=== PATIENT | male | born 1950 | race Caucasian/White ===

== ENCOUNTER 2019-02-09 15:08 | Inpatient (IN) ==
--- NOTE | 2019-02-09 18:59 | Internal Med History&Physical ---
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 Patient was sent as a direct admit and nephrology consulted. Past Med Surg Social Fam HX - Past Medical History Medical history: cancer, liver disease Additional medical history: hep c Psychiatric history: no psych history - Past Surgical History Additional surgical history: right elbow surgery - colonoscopy - Social History Smoking Status: Former smoker Smokeless Tobacco Status: No Alcohol use: none Drug use: none - Additional Family History Additional family history: Mom coronary arterial disease Internal Medicine - H&P: Meds DiphenhydraMINE [Benadryl] 25 mg PO AD PRN 10/12/18 [History] Bismuth Subsalicylate [Pepto-Bismol] 262 mg PO DAILY PRN 11/03/18 [History] Ciprofloxacin [Cipro] 500 mg PO DAILY #30 tablet 12/07/18 [Rx] Bumetanide [Bumex] 1 mg PO DAILY 30 Days #30 tablet 12/20/18 [Rx] hydrOXYzine HCl [Hydroxyzine HCl] 25 mg PO Q6H PRN #30 tab 01/24/19 [Rx] HYDROcodone/Acet 5/325 mg [[place] 5-325 mg] 1 tab PO Q6H PRN 14 Days #56 tablet 02/01/19 [Rx] Ammonium Lactate [Amlactin] 1 appl TP BID #1 bottle 02/09/19 [Rx] Doxepin HCl 50 mg PO HS #30 capsule 02/09/19 [Rx] Triamcinolone Acet 0.1% CRM [Kenalog] 453.6 gm TP BID #1 tub 02/09/19 [Rx] predniSONE [PredniSONE] 10 mg PO DAILY #30 tablet 02/09/19 [Rx] Allergy/AdvReac Type Severity Reaction Status Date / Time Penicillins [PCN] AdvReac See Verified 02/09/19 13:48 Comments All Systems PM: A 10-system review of systems was performed and is negative for pertinent findings except as documented above in the HPI. - Constitutional Vitals: Temp Pulse Resp BP Pulse Ox 97.3 F L 81 16 109/70 97 02/09/19 17:24 02/09/19 17:24 02/09/19 17:24 02/09/19 17:24 02/09/19 17:24 Exam: General appearance: Present: A&O X 3, no acute distress - Head Head exam: Present: normocephalic - Eye Eye exam: Present: normal appearance - ENT ENT exam: Present: mucous membranes moist - Respiratory Respiratory exam: Present: CTAB. Absent: accessory muscle use, rales, rhonchi, wheezes - Cardiovascular Cardiovascular exam: Present: RRR, +S1, +S2. Absent: diastolic murmur, gallop, rubs, systolic murmur - GI/Abdominal GI/Abdominal exam: Present: normal bowel sounds, soft, no peritoneal signs. Absent: distended, tenderness - Extremities Exam Extremities exam: Absent: pedal edema - Neurological Exam Neurological exam: Present: alert, oriented X3, no focal deficits. Absent: altered - Psychiatric Psychiatric exam: -normal mood Skin exam: -normal color - Assessment and Plan (1) Acute renal failure (ARF) Current Visit: Yes Status: Acute Assessment and plan: Patient found to have a creatinine of 6.3 at heme oncologist. Patient was sent over as a direct admit for acute renal failure. Nephrology consulted and appreciate respirations. Qualifiers: Acute renal failure type: unspecified Qualified Code(s): N17.9 - Acute k idney failure, unspecified (2) Liver cancer Current Visit: No Status: Acute Assessment and plan: Patient is a 68-year-old male with past medical history significant for metastatic hepatocellular carcinoma with metastases to the bone in addition to hepatitis C who is currently receiving palliative radiotherapy Managed by hematology oncology as outpatient Qualifiers: Liver malignancy type: hepatocellular carcinoma Qualified Code(s): C22.0 - Liver cell carcinoma (3) Bone metastases Current Visit: No Status: Acute Assessment and plan: As above (4) DVT prophylaxis Current Visit: Yes Status: Acute Assessment and plan: Subcutaneous heparin - Time Spent With Patient Total time spent is greater than 50% in coordination of care (as documented) at patient's floor/unit and/or counseling patient:
[2019-02-09] MEDS ORDERED: Naloxone 0.4 MG/ML INJ IVP PRN (19:04)
[2019-02-09] MEDS: 0.9 % Sodium Chloride 1,000 ML IVC SCH (20:38)
[2019-02-10 05:00] LABS: Hemoglobin 9.9 g/dL (12.9-16.9); Mean Corpuscular HGB Conc 34.1 g/dL (31.6-35.5); Mean Corpuscular Hemoglobin 28.5 pg (28.0-33.3); Mean Corpuscular Volume 83.6 fL (83.0-100.0); Platelet Count 146 K/mcL (140-400); Red Blood Count 3.47 M/mcL (4.19-5.50); Red Cell Distribution Width 16.6 % (11.5-14.5)
[2019-02-10 05:27] LABS: Albumin 2.6 g/dL (3.5-5.7); Albumin/Globulin Ratio 0.7 (1.1-2.2); Bilirubin,Total 0.6 mg/dL (0.3-1.0); Globulin 3.6 g/dL (2.4-3.5); Potassium 4.2 mEq/L (3.5-5.1); Total Protein 6.2 g/dL (6.4-8.9)
[2019-02-10] MEDS ORDERED: *HR* OxyCODONE Immed Rel 5 MG TABLET PO STA (08:50)
[2019-02-10] MEDS: 0.9 % Sodium Chloride 1,000 ML IVC SCH (11:45)
[2019-02-10] MEDS ORDERED: *HR* OxyCODONE Immed Rel 5 MG TABLET PO PRN (16:05)
--- NOTE | 2019-02-10 17:06 | Nephrology Consult Note ---
Date of Encounter: 02/10/19 Time of Encounter: 17:02 Assessment and Plan (1) Acute kidney injury superimposed on chronic kidney disease Current Visit: Yes Status: Acute The patient has multifactorial acute kidney injury superimposed on chronic kidney disease. Reviewing his records his renal function has been slowly worsening since November however acutely worsened over the last 3-4 weeks. The patient has multiple possible reasons for worsening kidney function. This includes chronic NSAID use, dehydration from decreased oral intake along with occasional diarrhea, and low blood pressure. This is in the context of an older patient with metastatic cancer receiving immunotherapy who has a diagnosis of cirrhosis. I do think the reason for the acute rise in his renal dysfunction is secondary to volume depletion from decreased oral intake along with chronic NSAID use and routine draining of his abdomen. I will initiate therapy with can increasing his maintenance IV along with giving supplemental bicarbonate. I will initiate a workup as indicated in the orders along with a renal ultrasound. I will defer further workup to Dr. Veronica who will take over the [facility]' inpatient service tomorrow and can review his response to hydration as well as the results of the limited workup. Further management will be determined based off his response to clinical therapies as well as clinical testing. Thank you for the consult. We will follow with you. (2) Metabolic acidosis Current Visit: Yes Status: Acute We will give supplemental sodium bicarbonate. (3) Liver cancer Current Visit: No Status: Acute Patient with metastatic hepatocellular carcinoma. Per the primary team. Richard enrique. I did speak with oncology regarding the plan for the patient. Qualifiers: Liver malignancy type: hepatocellular carcinoma Qualified Code(s): C22.0 - Liver cell carcinoma (4) Anemia Current Visit: Yes Status: Acute We will defer to primary care team. No signs of active bleeding at this time. Transfuse as needed. Qualifiers: Qualified Code(s): D64.9 - Anemia, unspecified (5) Hyponatremia Current Visit: Yes Status: Acute Mild and multifactorial hyponatremia and that should respond to intravenous sodium bicarbonate. History of Present Illness - Reason for Consult Consult date: 02/10/19 Acute Kidney Injury, Chronic Kidney Disease - Chief Complaint martha on ckd - History of Present Illness Mr. Marino is a 68 yo man with a history of chronic kidney disease and metastatic hepatocellular cancer who presents from his oncologist's office secondary to an acute rise in his creatinine. The history was obtained from the patient, his family at the bedside, as well as review of the electronic chart. The patient has hepatic cancer and receives immunotherapy. Over the last few months the patient has had a decline in his functional status and over the last 3 weeks has had a significant decline in his oral intake secondary to a decreased appetite along with occasional discomfort and nausea when he eats. He reports that he has alternating diarrhea and constipation. He has had 3 weeks of occasional nausea. He has had several episodes of emesis over the last day. He denies rashes, but has had significant itching over the last few months. The patient has been taking ibuprofen for pain control and stopped 2-3 weeks ago secondary to concerns that it might exacerbate his bleeding risk. The patient reports that prior to him discontinuing his NSAID that he was taking ibuprofen several times a day and has been doing this for greater than 4 months. Past Med Surg Social Fam HX - Past Medical History Medical history: cancer, liver disease Additional medical history: hep c Psychiatric history: no psych history - Past Surgical History Additional surgical history: right elbow surgery - colonoscopy - Social History Smoking Status: Former smoker Smokeless Tobacco Status: No Alcohol use: none Drug use: none Medications and Allergies hydrOXYzine HCl [Hydroxyzine HCl] 25 mg PO Q6H PRN #30 tab 01/24/19 [Rx] HYDROcodone/Acet 5/325 mg [[place] 5-325 mg] 1 tab PO Q6H PRN 14 Days #56 tablet 02/01/19 [Rx] Doxepin HCl 50 mg PO HS #30 capsule 02/09/19 [Rx] Triamcinolone Acet 0.1% CRM [Kenalog] 453.6 gm TP BID #1 tub 02/09/19 [Rx] Ammonium Lactate [Lac-Hydrin Five] 1 appl TP BID 02/10/19 [History] Ciprofloxacin HCl [Cipro] 500 mg PO DAILY 02/10/19 [History] Oxycodone HCl 5 mg PO Q4H PRN 02/10/19 [History] predniSONE [PredniSONE] 10 mg PO DAILY 02/10/19 [History] Allergy/AdvReac Type Severity Reaction Status Date / Time Penicillins [PCN] AdvReac See Verified 02/09/19 13:48 Comments Review of Systems All Systems: reviewed and no additional remarkable complaints except as stated (As documented in the history of present illness) Exam - Vital Signs Vital signs: Initial Vital Signs Temp Pulse Resp BP Pulse Ox 97.3 F L 81 16 109/70 97 02/09/19 17:24 02/09/19 17:24 02/09/19 17:24 02/09/19 17:24 02/09/19 17:24 Vital Signs - Last 8 Hours Temp Pulse Resp BP Pulse Ox 02/10/19 15:13 97.4 F L 84 16 104/68 96 02/10/19 11:07 97.9 F 79 17 98/61 97 Intake and Output 02/10/19 02/10/19 02/10/19 07:59 15:59 23:59 Intake Total 60 / 60 1360 / 1360 Output Total 0 / 0 Balance 60 / 60 1360 / 1360 Intake: IV Fluids 1000 / 1000 0.9 % Sodium Chloride 1,000 ML 1000 / 1000 @ 75 mls/hr IVC .[id number] COUNT INCLUDES THE [facility] Rx #:[id number] Oral 60 / 60 360 / 360 Output: Urine 0 / 0 Other: Meal Lunch Percent of Meal Consumed 10% - General Appearance General appearance: well-developed, chronically ill, frail EENT: ATNC Neck: supple Respiratory: clear Cardiology: no edema, regular rate Gastrointestinal: no tenderness, no guarding, distended (Abdomen is distended and somewhat firm.) Integumentary: warm and dry Neurologic: alert and oriented x3 Musculoskeletal: no cyanosis Psychiatric: mood/affect appropriate Results - Lab Results 02/10/19 04:34 02/10/19 04:34 Most recent lab results Calcium 8.0 mg/dL (8.6-10.3) L 02/10/19 04:34 Consult Discharge Plan - Plan Referrals: Deepali Seo MD [Primary Care Provider] -
[2019-02-10 19:22] LABS: Bilirubin,Urine Negative (Negative); Blood,Urine Negative (Negative); Clarity,Urine Clear (Clear); Color,Urine Yellow (Yellow); Glucose,Urine (UA) Normal (Normal); Ketones,Urine Negative (Negative); Leukocyte Esterase,Urine Negative (Negative); Nitrite,Urine Negative (Negative); Protein,Urine 30 mg/dL (Neg-Trace); Specific Gravity,Urine 1.014 (1.010-1.025); Urobilinogen,Urine Normal (Normal)
[2019-02-10 19:22] LABS: Protein/Creatinine Ratio,Urine 0.31 mg/mg (0.00-0.20)
[2019-02-10 19:46] LABS: Bacteria,Urine Few per hpf (None-Few); Hyaline Casts,Urine None Seen per lpf (None-Few); Squamous Epithelial Cell,Urine Few per lpf (None-Few)
--- NOTE | 2019-02-10 20:50 | Oncology Inp Consult Note ---
Date of Encounter: 02/11/19 Time of Encounter: 17:00 Assessment and Plan (1) Liver cancer Status: Acute Assessment and plan: Stage IV with bone mets, on pallliative traetment with immunotherapy, s/pnivolumab on 01/04/19, subsequent treatments held due to renal insufficiency. Diuretics have been held, per nephrology possible pre-renal component, 3rd spacing, dehydration, NSAId use. Avoid nephrotoxic agents, gentle hydration, renal US has been ordered, monitor urine output/catheter drainage Itching, without skin rash, possibly related to liver disease. Immune etiology for skin/renal failure not ruled out. On prednisone small dosage already for sskin itching? Metastatic HCC-nivolumab on hold due to ARF. AFP has trended up lately. Shoulder pain-r/p any new mets, imaging to be obtained Discussed plan of care with patient and family bedside. Discussed management with nephrology. Qualifiers: Liver malignancy type: hepatocellular carcinoma Qualified Code(s): C22.0 - Liver cell carcinoma - Data of Consult Requesting Physician: Brooks Howard Primary Care Provider: Deepali Seo MD - Consult Narrative Reason for consult: HCC, ARF History of present illness: 68 yo male with medical hx significant for cirrhosis, hx hepoatitis C and hepatocellular carcinoma with metastatic disease to bones, s/ppalliative RT on nivolumab with renal insufficiency, acute worsening of labs, hospitalized for further management. MRI had shown at diagnosis 08/19, nonocclusive thrombus in the anterior branch of the right portal vein, portacaval adenopathy, enhancement of the T9 vertebral body which showed metastatic disease on biopsy. He underwent palliative RT to spine and palliative immunotherapy Rx. He has ascitis, splenomegaly, takes diuretics, peritoneal catheter drainage. He has itching generalized, abdominal distension, urinating clear urine, denies discomfort other than left shoulder pain. Nephrology has been consulted for management of acute renal failure. Past Med Surg Social Fam HX - Past Medical History Medical history: cancer, liver disease Additional medical history: hep c Psychiatric history: no psych history - Past Surgical History Additional surgical history: right elbow surgery - colonoscopy - Social History Smoking Status: Former smoker Smokeless Tobacco Status: No Alcohol use: none Drug use: none Medications and Allergies hydrOXYzine HCl [Hydroxyzine HCl] 25 mg PO Q6H PRN #30 tab 01/24/19 [Rx] HYDROcodone/Acet 5/325 mg [[place] 5-325 mg] 1 tab PO Q6H PRN 14 Days #56 tablet 02/01/19 [Rx] Doxepin HCl 50 mg PO HS #30 capsule 02/09/19 [Rx] Triamcinolone Acet 0.1% CRM [Kenalog] 453.6 gm TP BID #1 tub 02/09/19 [Rx] Ammonium Lactate [Lac-Hydrin Five] 1 appl TP BID 02/10/19 [History] Ciprofloxacin HCl [Cipro] 500 mg PO DAILY 02/10/19 [History] Oxycodone HCl 5 mg PO Q4H PRN 02/10/19 [History] predniSONE [PredniSONE] 10 mg PO DAILY 02/10/19 [History] Allergy/AdvReac Type Severity Reaction Status Date / Time Penicillins [PCN] AdvReac See Verified 02/09/19 13:48 Comments Additional comments: itching Ears: Present: as per HPI Nose, mouth and throat: Present: as per HPI Additional comments: no chest pain or palpitations Additional comments: denies SOB, denies cough Additional comments: no diarrhea. Abd distension without pain Additional comments: shoulder pain Oncology - Exam - Constitutional General appearance: average body habitus, severe distress - Head Head exam: Present: atraumatic, normal inspection - Eye Eye exam: Present: sclera anicteric - ENT ENT exam: Present: mucous membranes dry - Neck Neck exam: Present: full ROM, normal inspection - Respiratory Respiratory exam: Present: CTAB Additional comments: david air entry - Cardiovascular Cardiovascular exam: Present: +S1, +S2 - GI/Abdominal GI/Abdominal exam: Present: distended, normal bowel sounds, soft Additional comments: peritoneal catheter rt lateral abd - Extremities Exam Extremities exam: Present: pedal edema - Neurological Exam Neurological exam: Present: alert, CN II-XII intact, oriented X3, no focal deficits - Psychiatric Psychiatric exam: Present: normal affect Consult Discharge Plan - Plan Referrals: Deepali Seo MD [Primary Care Provider] - Inpatient Charges Provider: Dr. Nikole Donald Consult - Inpatient: [id number]
--- NOTE | 2019-02-10 21:28 | Internal Med Progress Note ---
Hospitalist Progress Note - Encounter Date of Encounter: 02/10/19 Time of Encounter: 19:00 - Subjective Interval History: SUBJECTIVE: Patient feels somewhat better, after getting IV fluids. He complains of chronic left shoulder pain. He has been losing weight recentlyat least 5 pounds in the last week or so. OBJECTIVE: Skin: Free of rash and discoloration. ENMT: Oral/pharyngeal mucosa is normal in appearance. Eyes: Sclera is white. There is no discharge from eyes. Respiratory: Normal breath sounds; no crackles or wheezes. CV: Heart is regular; no gallop or murmur. GI: His abdomen is rounded. It seems to contain a moderate amount of ascites. Neuro: There is no focal deficits. ADDITIONAL DATA: Xxxxx ASSESSMENT AND PLAN: Liver cancer. Bone metastases. The patient was getting palliative treatment with immunotherapy - put on hold due to developing renal insufficiency. See notes from oncology. Acute renal failure. Likely multifactorial. Dehydration, third spacing and NSAIDs use. Possible, other factors. Getting IV fluids. See notes from nephrology. Hepatitis C, NOS. no treatment is needed at this time. Ascites. The patient has a special catheter in intraperitoneal cavity. He drains his fluids every other day. Severe protein calorie malnutrition. Secondary to advanced cancer. To continue supportive treatments. - Exam Vitals: Temp Pulse Resp BP Pulse Ox 97.5 F L 78 18 100/65 98 02/10/19 20:28 02/10/19 20:28 02/10/19 20:28 02/10/19 20:28 02/10/19 20:28 Exam: xx - Assessment and Plan (1) Liver cancer Current Visit: No Status: Acute (2) Bone metastases Current Visit: No Status: Acute (3) Acute renal failure (ARF) Current Visit: Yes Status: Acute (4) Hepatitis C Current Visit: Yes Status: Acute (5) Ascites Current Visit: Yes Status: Chronic - Time Spent with Patient Total time spent is greater than 50% in coordination of care (as documented) at patient's floor/unit and/or counseling patient: 25 - 35 minutes Plan of Care Discussed with: patient (and family...) Internal Medicine: Result - Labs CBC & Chem 7: 02/10/19 04:34 02/10/19 04:34 Labs: Short CBC 02/10/19 Range/Units 04:34 WBC 6.3 (4.3-11.1) K/mcL Hgb 9.9 L (12.9-16.9) g/dL Hct 29.0 L (37.5-50.1) % Plt Count 146 (140-400) K/mcL BMP 02/10/19 04:34 Sodium 132 L Potassium 4.2 Chloride 109 H Carbon Dioxide 12 L BUN 84 H Creatinine 5.41 H Glucose 97 Calcium 8.0 L Liver Function 02/10/19 Range/Units 04:34 Total Bilirubin 0.6 (0.3-1.0) mg/dL AST 39 (13-39) Units/L ALT 24 (7-52) Units/L Alkaline Phosphatase 117 H (34-104) Units/L Albumin 2.6 L (3.5-5.7) g/dL Urine 02/10/19 Range/Units 18:50 Urine Color Yellow (Yellow) Urine Clarity Clear (Clear) Urine pH 6.0 (5.0-8.0) pH Units Ur Specific [place] 1.014 (1.010-1.025) Urine Protein 30 H (Neg-Trace) mg/dL Urine Glucose (UA) Normal (Normal) mg/dL Consult Discharge Plan - Plan Referrals: Deepali Seo MD [Primary Care Provider] - (1) Liver cancer Qualifiers: Liver malignancy type: hepatocellular carcinoma Qualified Code(s): C22.0 - Liver cell carcinoma (3) Acute renal failure (ARF) Qualifiers: Acute renal failure type: unspecified Qualified Code(s): N17.9 - Acute kidney failure, unspecified (4) Hepatitis C Qualifiers: Viral hepatitis chronicity: unspecified
[2019-02-10] MEDS: *HR* Heparin 5,000 UNIT/ML VIAL SQ SCH (21:36)
[2019-02-10] MEDS: Sodium Bicarbonate 75 MEQ in 0.45 % Sodium Chloride 1,000 ML IVC SCH (21:37)
[2019-02-10] MEDS: hydrOXYzine pamoate 25 MG CAPSULE PO PRN (21:39)
[2019-02-10] MEDS: Ammonium Lactate 30 APPL/225 GM BOTTLE TP SCH (21:59)
[2019-02-10] MEDS: Triamcinolone Acet 0.1% CRM 15 GM TUBE TP SCH (21:59)
[2019-02-11 02:02] LABS: Hematocrit 28.6 % (37.5-50.1); Hemoglobin 9.6 g/dL (12.9-16.9); Mean Corpuscular HGB Conc 33.6 g/dL (31.6-35.5); Mean Corpuscular Hemoglobin 28.4 pg (28.0-33.3); Mean Corpuscular Volume 84.6 fL (83.0-100.0); Mean Platelet Volume 9.5 fL (9.4-12.4); Platelet Count 131 K/mcL (140-400); Red Blood Count 3.38 M/mcL (4.19-5.50); Red Cell Distribution Width 16.6 % (11.5-14.5)
[2019-02-11 02:21] LABS: Potassium 4.2 mEq/L (3.5-5.1)
[2019-02-11] MEDS: *HR* Heparin 5,000 UNIT/ML VIAL SQ SCH ×2 (05:37→18:02)
[2019-02-11] MEDS: predniSONE 10 MG TABLET PO SCH (07:57)
[2019-02-11] MEDS: Triamcinolone Acet 0.1% CRM 15 GM TUBE TP SCH ×2 (07:58→21:16)
[2019-02-11] MEDS: Ammonium Lactate 30 APPL/225 GM BOTTLE TP SCH ×2 (07:58→21:16)
--- NOTE | 2019-02-11 11:15 | Nephrology Progress Note ---
Date of Encounter: 02/11/19 Time of Encounter: 09:30 - Assessment and Plan (1) Acute kidney injury superimposed on chronic kidney disease Current Visit: Yes Status: Acute NAYANA with renal risk factors: volume depletion, recurrent large volume paracentesis (via implanted drain), recent NSAIDs. UOP not robust most likely d/t shunting of fluid to the ascites. Okay to drain small amounts of <1000/day. Should r/o renal vein/ureter compression: will check abd imaging. Recommend giving Albumin. Renal diet. (2) Hyponatremia Current Visit: Yes Status: Acute (3) Metabolic acidosis Current Visit: Yes Status: Acute (4) Liver cancer Current Visit: No Status: Acute Qualifiers: Liver malignancy type: hepatocellular carcinoma Qualified Code(s): C22.0 - Liver cell carcinoma (5) Anemia Current Visit: Yes Status: Acute Qualifiers: Qualified Code(s): D64.9 - Anemia, unspecified (6) Ascites Current Visit: Yes Status: Chronic Qualifiers: Ascites type: malignant Qualified Code(s): R18.0 - Malignant ascites Subjective Principal diagnosis: NAYANA Interval history: The patient was seen and examined. His adult son was present in the room. He reported feeling about the same, and did not affirm nausea, vomiting, fevers. He still has fatigue. Objective - Vital Signs Vital signs: Vital Signs Temp Pulse Resp BP Pulse Ox 02/11/19 08:09 97 02/11/19 06:37 97.7 F 80 16 99/62 97 02/11/19 03:58 97.4 F L 77 18 94/59 96 02/11/19 00:40 97.5 F L 80 18 100/58 97 02/10/19 20:28 97.5 F L 78 18 100/65 98 02/10/19 15:13 97.4 F L 84 16 104/68 96 Intake and Output 02/10/19 02/11/19 02/11/19 23:59 07:59 15:59 Intake Total 240 / 240 0 / 0 Output Total 0 / 0 0 / 0 0 / 0 Balance 240 / 240 0 / 0 0 / 0 Intake: Oral 240 / 240 0 / 0 Output: Urine 0 / 0 0 / 0 0 / 0 Other: Meal Dinner Breakfast Percent of Meal Consumed 90% 75% Weight 73.9 kg Patient Weight 02/11/19 23:59 Weight 73.9 kg - General Appearance General appearance: Present: cachectic, fatigue, frail EENT: Present: ATNC, PERRL Neck: Present: supple Respiratory: Present: clear Cardiology: Present: no edema, regular rate, normal S1, normal S2 Gastrointestinal: Present: normoactive bowel sounds, distended Integumentary: Present: warm and dry Neurologic: Present: no focal deficit, alert and oriented x3 Musculoskeletal: Present: no erythema, no cyanosis Psychiatric: Present: mood/affect appropriate, cooperative - Lab 02/11/19 01:11 02/11/19 01:11 Most recent lab results Calcium 8.0 mg/dL (8.6-10.3) L 02/11/19 01:11 Urine Creatinine 168 mg/dL 02/10/19 18:55 Urine Total Protein 52 mg/dL (1-14) H 02/10/19 18:55 Consult Discharge Plan - Plan Referrals: Deepali Seo MD [Primary Care Provider] -
--- NOTE | 2019-02-11 15:03 | Oncology Inp Progress Note ---
<Mina Goodson S - Last Filed: 02/11/19 19:13> Date of Encounter: 02/11/19 Time of Encounter: 19:13 Oncology: Obj Data - Labs CBC & Chem 7: 02/11/19 01:11 02/11/19 01:11 Consult Discharge Plan - Plan Referrals: Deepali Seo MD [Primary Care Provider] - Inpatient Charges Provider: Dr. Hua Goodson Follow up - Inpatient: [id number] - Attending Attestation I examined this patient and my medical decision-making was reviewed with the Advanced Practice Nurse. I agree with the documented findings, disposition and treatment plan as described except to the extent set forth below. 1. Acute renal failure. Creatinine normal prior to October 2018. Increased to 1.5 11/09/2018 and slowly increased to about 5.5 range. Nephrology involved Had extensive discussion with the patient and the . I am not sure if immunotherapy is contributing to that. His thinks he did not feel. After Nivolumab was switched to 400 mg every 4 week dosing. He skipped the last treatment. We will discuss this further with Dr. jj 2. 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 Recommend gastroenterology consultation. Liver enzymes normal. INR normal at 1.2. Bilirubin normal 3. Stage IV hepatocellular carcinoma. Patient could not tolerate sorafenib. Started on Nivolumab 11/09/2018. <Kateryna Soto - Last Filed: 02/14/19 08:29> Date of Encounter: 02/11/19 (1) Liver cancer Current Visit: No Status: Acute Assessment and plan: Stage IV hepatocellular carcinoma. Previously could not tolerate sorafenib. Started on Nivolumab 11/09/2018. AFP increasing currently, likely indicating disease progression Pending improvement of renal function, we will discuss next line of treatment as outpatient Qualifiers: Liver malignancy type: hepatocellular carcinoma Qualified Code(s): C22.0 - Liver cell carcinoma (2) Acute renal failure (ARF) Current Visit: Yes Status: Acute Assessment and plan: 1. Acute renal failure. Creatinine normal prior to October 2018, gradually increasing since 11/09/2018. 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 Qualifiers: Ascites type: malignant Qualified Code(s): R18.0 - Malignant ascites Oncology: Subj Interval history: Mr Marino is resting in chair. No acute events noted overnight. Renal function gradually improving. at bedside. He is doing well and denies physical symptoms currently. - Constitutional General appearance: cooperative, no acute distress, no febrile - Head Head exam: Present: atraumatic - ENT ENT exam: Present: mucous membranes moist, normal oropharynx - Respiratory Respiratory exam: Present: CTAB. Absent: respiratory distress - Cardiovascular Cardiovascular exam: Present: RRR - GI/Abdominal GI/Abdominal exam: Present: distended, normal bowel sounds, soft. Absent: tenderness - Extremities Exam Extremities exam: Present: normal inspection. Absent: calf tenderness - Neurological Exam Neurological exam: Present: alert, oriented X3, no focal deficits, strengths equal and symetr throughout - Psychiatric Psychiatric exam: Present: normal affect, normal mood - Skin Skin exam: Present: dry, intact, normal color, warm Oncology: Obj Data - Labs CBC & Chem 7: 02/14/19 05:12 02/14/19 05:12 Inpatient Charges Provider: Dr. Hua Goodson
[2019-02-11] MEDS: Albumin 25% 25gram/100mL 25 GM/100 ML IV.SOLN IVPB SCH ×2 (15:41→23:37)
[2019-02-11] MEDS: Sodium Bicarbonate 75 MEQ in 0.45 % Sodium Chloride 1,000 ML IVC SCH ×3 (15:50→23:39)
[2019-02-11] MEDS: hydrOXYzine pamoate 25 MG CAPSULE PO PRN (18:11)
[2019-02-11] MEDS: *HR* HYDROcodone/Acet 5/325 mg TABLET PO PRN (22:29)
--- NOTE | 2019-02-11 23:17 | Internal Med Progress Note ---
Hospitalist Progress Note - Encounter Date of Encounter: 02/11/19 Time of Encounter: 19:00 - Subjective Interval History: SUBJECTIVE: Patient feels somewhat better, after getting IV fluids. He complains of chronic left shoulder pain. He has been losing weight recentlyat least 5 pounds in the last week or so. OBJECTIVE: Skin: Free of rash and discoloration. ENMT: Oral/pharyngeal mucosa is normal in appearance. Eyes: Sclera is white. There is no discharge from eyes. Respiratory: Normal breath sounds; no crackles or wheezes. CV: Heart is regular; no gallop or murmur. GI: His abdomen is rounded. It seems to contain a moderate amount of ascites. Neuro: There is no focal deficits. ADDITIONAL DATA: Hemoglobin is 9.6 (9.9 yesterday) with normal WBC. Platelet count is 131,000; 146,000 yesterday. Sodium is 132 with potassium 4.2 and bicarb of 12 (the same yesterday). Creatinine is 5.2; 5.41 yesterday. Fasting glucose is 100. ASSESSMENT AND PLAN: Liver cancer. Bone metastases. The patient was getting palliative treatment with immunotherapy - put on hold due to developing renal insufficiency. See notes from oncology. Acute renal failure. Likely multifactorial. Dehydration, third spacing and NSAIDs use. Possible, other factors. Getting IV fluids. See notes from nephrology. The patient is draining fluid from peritoneal cavity every day or every other day. We advised him not to take more when 1000 mL per day. We may need to proceed with infusion of albumin. Hepatitis C, NOS. developed liver cirrhosis. Ascites. The patient has a special catheter in intraperitoneal cavity. Severe protein calorie malnutrition. Secondary to advanced cancer. To continue supportive treatments. - Exam Vitals: Temp Pulse Resp BP Pulse Ox 97.8 F 89 18 101/62 98 02/11/19 23:00 02/11/19 23:00 02/11/19 23:00 02/11/19 23:00 02/11/19 23:00 Exam: xx - Assessment and Plan (1) Liver cancer Current Visit: No Status: Acute (2) Bone metastases Current Visit: No Status: Acute (3) Acute renal failure (ARF) Current Visit: Yes Status: Acute (4) Hepatitis C Current Visit: Yes Status: Acute (5) Ascites Current Visit: Yes Status: Chronic - Time Spent with Patient Total time spent is greater than 50% in coordination of care (as documented) at patient's floor/unit and/or counseling patient: 25 - 35 minutes Plan of Care Discussed with: patient Internal Medicine: Result - Labs CBC & Chem 7: 02/11/19 01:11 02/11/19 01:11 Labs: Short CBC 02/11/19 Range/Units 01:11 WBC 5.5 (4.3-11.1) K/mcL Hgb 9.6 L (12.9-16.9) g/dL Hct 28.6 L (37.5-50.1) % Plt Count 131 L (140-400) K/mcL BMP 02/11/19 01:11 Sodium 132 L Potassium 4.2 Chloride 107 Carbon Dioxide 12 L BUN 82 H Creatinine 5.20 H Glucose 100 Calcium 8.0 L - Impressions Impressions Retroperitoneum Ultrasound 02/10/19 17:00 IMPRESSION: 1. No evidence of hydronephrosis. Normal renal cortical echogenicity. 2. Ascites. Splenomegaly. These findings are partially imaged and evaluated. D/ / 02/10/2019 21:26:44 Albin Christie MD / [facility] Interpreting Provider: Albin Christie MD Consult Discharge Plan - Plan Referrals: Deepali Seo MD [Primary Care Provider] - ____ (1) Liver cancer Qualifiers: Liver malignancy type: hepatocellular carcinoma Qualified Code(s): C22.0 - Liver cell carcinoma (3) Acute renal failure (ARF) Qualifiers: Acute renal failure type: unspecified Qualified Code(s): N17.9 - Acute kidney failure, unspecified (4) Hepatitis C Qualifiers: Viral hepatitis chronicity: unspecified (5) Ascites Qualifiers: Ascites type: malignant Qualified Code(s): R18.0 - Malignant ascites
[2019-02-12 06:25] LABS: Basophils # 0.1 K/mcL (0.0-0.2); Basophils % 0.9 %; Eosinophils # 0.2 K/mcL (0.0-0.6); Eosinophils % 4.1 %; Hematocrit 22.5 % (37.5-50.1); Immature Granulocytes % 0.7 % (0-4); Lymphocytes # 0.4 K/mcL (0.6-4.6); Lymphocytes % 6.4 %; Mean Corpuscular HGB Conc 34.7 g/dL (31.6-35.5); Mean Corpuscular Hemoglobin 28.3 pg (28.0-33.3); Mean Corpuscular Volume 81.5 fL (83.0-100.0); Mean Platelet Volume 10.2 fL (9.4-12.4); Monocytes # 0.8 K/mcL (0.0-1.3); Monocytes % 14.6 %; Neutrophils # 4.1 K/mcL (1.6-8.9); Platelet Count 116 K/mcL (140-400); Red Blood Count 2.76 M/mcL (4.19-5.50); Red Cell Distribution Width 16.2 % (11.5-14.5); Segmented Neutrophils % 73.3 %
[2019-02-12 06:26] LABS: Hemoglobin 7.8 g/dL (12.9-16.9)
[2019-02-12 06:32] LABS: Calcium 7.6 mg/dL (8.6-10.3); Potassium 3.6 mEq/L (3.5-5.1)
[2019-02-12 06:36] LABS: Phosphorous 4.4 mg/dL (2.7-4.5)
[2019-02-12 06:55] LABS: Hepatitis B Surface Antigen Nonreactive (Nonreactive)
[2019-02-12] MEDS: *HR* Heparin 5,000 UNIT/ML VIAL SQ SCH ×2 (07:14→18:07)
[2019-02-12 07:25] LABS: Hepatitis A Antibody IgM Nonreactive (Nonreactive); Hepatitis B Core IgM Nonreactive (Nonreactive)
[2019-02-12] MEDS: Sodium Bicarbonate 75 MEQ in 0.45 % Sodium Chloride 1,000 ML IVC SCH ×2 (07:54→16:15)
[2019-02-12] MEDS: predniSONE 10 MG TABLET PO SCH (08:23)
[2019-02-12] MEDS: Ammonium Lactate 30 APPL/225 GM BOTTLE TP SCH ×2 (08:24→21:05)
[2019-02-12] MEDS: Albumin 25% 25gram/100mL 25 GM/100 ML IV.SOLN IVPB SCH ×2 (08:24→16:12)
[2019-02-12] MEDS: Triamcinolone Acet 0.1% CRM 15 GM TUBE TP SCH ×2 (08:24→21:05)
--- NOTE | 2019-02-12 10:16 | Nephrology Progress Note ---
Date of Encounter: 02/12/19 Time of Encounter: 08:00 - Assessment and Plan (1) Acute kidney injury superimposed on chronic kidney disease Current Visit: Yes Status: Acute NAYANA with renal risk factors: volume depletion, recurrent large volume paracentesis (via implanted drain), recent NSAIDs. Ascites: Okay to drain small amounts of <1000/day. I reviewed the retroperitoneal U/S and he did not have hydronephrosis. . Continue current care. Will reassess IVF/Albumin again daily and compare his volume status and SCr to titrate. I recommend following a renal protective strategy, with a Renal diet, avoidance of nephrotoxins, strict I's and O's, daily weights. Medications should be dosed by GFR. Thank you. (2) Hyponatremia Current Visit: Yes Status: Acute (3) Metabolic acidosis Current Visit: Yes Status: Acute (4) Liver cancer Current Visit: No Status: Acute Qualifiers: Liver malignancy type: hepatocellular carcinoma Qualified Code(s): C22.0 - Liver cell carcinoma (5) Anemia Current Visit: Yes Status: Acute Qualifiers: Qualified Code(s): D64.9 - Anemia, unspecified (6) Ascites Current Visit: Yes Status: Chronic Qualifiers: Ascites type: malignant Qualified Code(s): R18.0 - Malignant ascites Subjective Principal diagnosis: NAYANA Interval history: The patient was seen and examined. His and floor RN were present in the room. He reported feeling about the same, and did not affirm nausea, vomiting, fevers. We discussed IVF. Objective - Vital Signs Vital signs: Vital Signs Temp Pulse Resp BP Pulse Ox 02/12/19 08:40 95 02/12/19 07:12 97.7 F 71 16 96/58 95 02/12/19 03:46 97.8 F 80 18 90/60 96 02/11/19 23:00 97.8 F 89 18 101/62 98 02/11/19 20:24 97.3 F L 82 18 105/68 99 02/11/19 15:27 97.4 F L 84 18 107/62 100 02/11/19 11:38 97.5 F L 65 16 92/54 97 Intake and Output 02/11/19 02/12/19 02/12/19 23:59 07:59 15:59 Intake Total 1900 / 1900 1100 / 1100 120 / 120 Output Total 450 / 450 0 / 0 Balance 1450 / 1450 1100 / 1100 120 / 120 Intake: IV Fluids 1100 / 1100 1100 / 1100 Sodium Bicarbonate 75 MEQ In 0. 1000 / 1000 1000 / 1000 45% Sodium Chloride 1000 Ml 1000 Ml 1,000 ML @ 125 mls/hr IVC .[id number] [facility] Rx#:[id number] Flexbumin 25 gm In 100 ml @ 60 100 / 100 100 / 100 mls/hr IVPB Q8HR [facility] Rx#: [id number] Oral 800 / 800 120 / 120 Output: Urine 450 / 450 0 / 0 Other: Meal Breakfast Percent of Meal Consumed 50% Weight 76.2 kg Patient Weight 02/12/19 23:59 Weight 76.2 kg - General Appearance Exam: General appearance: Present: cachectic, fatigue, frail EENT: Present: ATNC, PERRL Neck: Present: supple Respiratory: Present: clear but mild / trace crackles in the bilateral bases Cardiology: Present: no edema, regular rate, normal S1, normal S2 Gastrointestinal: Present: normoactive bowel sounds, distended Integumentary: Present: warm and dry Neurologic: Present: no focal deficit, alert and oriented x3 Musculoskeletal: Present: no erythema, no cyanosis Psychiatric: Present: mood/affect appropriate, cooperative - Lab 02/12/19 05:10 02/12/19 05:10 Most recent lab results Calcium 7.6 mg/dL (8.6-10.3) L 02/12/19 05:10 Phosphorus 4.4 mg/dL (2.7-4.5) 02/12/19 05:10 Urine Creatinine 168 mg/dL 02/10/19 18:55 Urine Sodium 12.2 mEq/L 02/11/19 13:05 Urine Total Protein 52 mg/dL (1-14) H 02/10/19 18:55 Consult Discharge Plan - Plan Referrals: Deepali Seo MD [Primary Care Provider] -
[2019-02-12 16:42] LABS: Hepatitis C Virus Antibody Reactive (Nonreactive)
[2019-02-12] MEDS: *HR* HYDROcodone/Acet 5/325 mg TABLET PO PRN (21:08)
--- NOTE | 2019-02-12 22:27 | Internal Med Progress Note ---
Hospitalist Progress Note - Encounter Date of Encounter: 02/12/19 Time of Encounter: 19:00 - Subjective Interval History: SUBJECTIVE: The patient feels pretty good. His left shoulder pain is under control. Denies abdominal pain, nausea and vomiting. He makes fair amounts of urine. He is able to move around on his own. OBJECTIVE: Skin: Free of rash and discoloration. ENMT: Oral/pharyngeal mucosa is normal in appearance. Eyes: Sclera is white. There is no discharge from eyes. Respiratory: Normal breath sounds; no crackles or wheezes. CV: Heart is regular; no gallop or murmur. GI: His abdomen is rounded. It seems to contain a mild/moderate amount of ascites. Neuro: There is no focal deficits. ADDITIONAL DATA: Hemoglobin is 7.8 (9.6 yesterday) with WBC of 5.6 thousand and platelet count of 116,000 (131,000 yesterday). Sodium is 132 with potassium of 3.6 and bicarb of 16 (12 yesterday). Creatinine is 4.61; 5.20 yesterday. Albumin is 3.0. ASSESSMENT AND PLAN: Liver cancer. Bone metastases. The patient was getting palliative treatment with immunotherapy before this hospitalization - put on hold due to developing renal insufficiency. See notes from oncology. Acute renal failure. Getting better with IV fluids (with addition of sodium bicarb). Likely multifactorial. Dehydration, third spacing and NSAIDs use. Possible, other factors. Getting IV fluids. See notes from nephrology. The patient is draining fluid from peritoneal cavity every day at 1000 mL per day. Albumin level is satisfactory. Hepatitis C, NOS. developed liver cirrhosis. Ascites. The patient has a special catheter in intraperitoneal cavity for daniel valdez of excessive amounts of fluid. Worsening of her chronic anemia. Likely secondary to infusion of IV fluids. I will be watching this problem closely. Severe protein calorie malnutrition. Secondary to advanced cancer. To continue supportive treatments. - Exam Vitals: Temp Pulse Resp BP Pulse Ox 97.5 F L 85 17 105/68 99 02/12/19 18:37 02/12/19 18:37 02/12/19 18:37 02/12/19 18:37 02/12/19 18:37 Exam: xx - Assessment and Plan (1) Liver cancer Current Visit: No Status: Acute (2) Bone metastases Current Visit: No Status: Acute (3) Acute renal failure (ARF) Current Visit: Yes Status: Acute (4) Hepatitis C Current Visit: Yes Status: Acute (5) Ascites Current Visit: Yes Status: Chronic (6) Anemia Current Visit: Yes Status: Chronic - Time Spent with Patient Total time spent is greater than 50% in coordination of care (as documented) at patient's floor/unit and/or counseling patient: 25 - 35 minutes Plan of Care Discussed with: patient Internal Medicine: Result - Labs CBC & Chem 7: 02/12/19 05:10 02/12/19 05:10 Labs: Short CBC 02/12/19 Range/Units 05:10 WBC 5.6 (4.3-11.1) K/mcL Hgb 7.8 L D (12.9-16.9) g/dL Hct 22.5 L (37.5-50.1) % Plt Count 116 L (140-400) K/mcL Neutrophils # 4.1 (1.6-8.9) K/mcL BMP 02/12/19 05:10 Sodium 132 L Potassium 3.6 Chloride 104 Carbon Dioxide 16 L BUN 81 H Creatinine 4.61 H Glucose 138 H Calcium 7.6 L Liver Function 02/12/19 Range/Units 05:10 Albumin 3.0 L (3.5-5.7) g/dL Consult Discharge Plan - Plan Referrals: Deepali Seo MD [Primary Care Provider] - ___ (1) Liver cancer Qualifiers: Liver malignancy type: hepatocellular carcinoma Qualified Code(s): C22.0 - Liver cell carcinoma (3) Acute renal failure (ARF) Qualifiers: Acute renal failure type: unspecified Qualified Code(s): N17.9 - Acute kidney failure, unspecified (4) Hepatitis C Qualifiers: Viral hepatitis chronicity: unspecified (5) Ascites Qualifiers: Ascites type: malignant Qualified Code(s): R18.0 - Malignant ascites (6) Anemia Qualifiers: Anemia type: unspecified type Qualified Code(s): D64.9 - Anemia, unspecified
[2019-02-13] MEDS: Albumin 25% 25gram/100mL 25 GM/100 ML IV.SOLN IVPB SCH ×3 (00:28→16:21)
[2019-02-13] MEDS: Sodium Bicarbonate 75 MEQ in 0.45 % Sodium Chloride 1,000 ML IVC SCH ×3 (00:29→20:00)
[2019-02-13] MEDS: *HR* Heparin 5,000 UNIT/ML VIAL SQ SCH ×2 (05:32→17:19)
[2019-02-13 07:47] LABS: Hematocrit 23.7 % (37.5-50.1); Hemoglobin 8.3 g/dL (12.9-16.9); Mean Corpuscular Hemoglobin 28.1 pg (28.0-33.3); Mean Corpuscular Volume 80.3 fL (83.0-100.0); Mean Platelet Volume 10.8 fL (9.4-12.4); Platelet Count 127 K/mcL (140-400); Red Blood Count 2.95 M/mcL (4.19-5.50); Red Cell Distribution Width 16.3 % (11.5-14.5)
--- NOTE | 2019-02-13 07:54 | Event Note ---
Date of Encounter: 02/13/19 Time of Encounter: 07:53 - Nephrology Event Note Nephrology chart review Pending renal function lab results for today (Thursday). I will be available today if needed. I will return tomorrow to follow-up with his acute kidney injury.
[2019-02-13] MEDS: predniSONE 10 MG TABLET PO SCH (08:30)
[2019-02-13] MEDS: Ammonium Lactate 30 APPL/225 GM BOTTLE TP SCH ×2 (08:30→20:00)
[2019-02-13] MEDS: Triamcinolone Acet 0.1% CRM 15 GM TUBE TP SCH ×2 (08:30→20:00)
[2019-02-13 08:53] LABS: Calcium 7.6 mg/dL (8.6-10.3); Potassium 3.2 mEq/L (3.5-5.1)
--- NOTE | 2019-02-13 21:07 | Internal Med Progress Note ---
Hospitalist Progress Note - Encounter Date of Encounter: 02/13/19 Time of Encounter: 19:00 - Subjective Interval History: SUBJECTIVE: I found this patient sitting next to his bed. He was not showing any signs of distress. Denies chest pain and difficulty breathing. Denies abdominal pain, nausea and vomiting. He makes fair amounts of urine. The patient feels pretty good. His left shoulder pain is under control. Denies abdominal pain, nausea and vomiting. He makes fair amounts of urine. He is able to move around on his own. OBJECTIVE: Skin: Free of rash and discoloration. ENMT: Oral/pharyngeal mucosa is normal in appearance. Eyes: Sclera is white. There is no discharge from eyes. Respiratory: Normal breath sounds; no crackles or wheezes. CV: Heart is regular; no gallop or murmur. GI: His abdomen is rounded. It seems to contain a mild/moderate amount of ascites. Neuro: There is no focal deficits. ADDITIONAL DATA: Hemoglobin is 8.3; 7.8 yesterday. He has normal WBC. Platelet count is 127,000; 146,000 at admission. Sodium is 132; the same yesterday. Potassium is 3.2; 3.6 yesterday. Bicarb is 18; 16 yesterday. Creatinine is 4.10; 4.61 yesterday and 5.41 admission. ASSESSMENT AND PLAN: Liver cancer. Bone metastases. The patient was getting palliative treatment with immunotherapy before this hospitalization - put on hold due to developing renal insufficiency. See notes from oncology. Acute renal failure. Getting better with IV fluids (with addition of sodium bicarb). Likely multifactorial. Dehydration, third spacing and NSAIDs use. Possible, other factors. Getting IV fluids. See notes from nephrology. The patient is draining fluid from peritoneal cavity every day at 1000 mL per day. Albumin level is satisfactory. I feel, that we need to stop IV fluids before discharging him home; to be observed for possible increase of his creatinine. A lot of IV fluid he gets, goes to peritoneal cavity. Subsequently it is drained. Hepatitis C, NOS. developed liver cirrhosis. Ascites. The patient has a special catheter in intraperitoneal cavity for drainage of excessive amounts of fluid. Hypokalemia. Decreased bicarb level. The patient will be taking supplemental potassium chloride. He gets sodium bicarbonate with IV fluids. Chronic anemia. Seems to be stable. It is basically asymptomatic. Severe protein calorie malnutrition. Secondary to advanced cancer. To continue supportive treatments. - Exam Vitals: Temp Pulse Resp BP Pulse Ox 97.6 F 102 16 119/80 96 02/13/19 19:00 02/13/19 19:00 02/13/19 19:00 02/13/19 19:00 02/13/19 19:00 Exam: xx - Assessment and Plan (1) Liver cancer Current Visit: No Status: Acute (2) Bone metastases Current Visit: No Status: Acute (3) Acute renal failure (ARF) Current Visit: Yes Status: Acute (4) Hepatitis C Current Visit: Yes Status: Acute (5) Ascites Current Visit: Yes Status: Chronic (6) Hypokalemia Current Visit: Yes Status: Acute (7) Anemia Current Visit: Yes Status: Chronic (8) Severe protein-calorie malnutrition Current Visit: Yes Status: Chronic - Time Spent with Patient Total time spent is greater than 50% in coordination of care (as documented) at patient's floor/unit and/or counseling patient: 25 - 35 minutes Plan of Care Discussed with: patient Internal Medicine: Result - Labs CBC & Chem 7: 02/13/19 06:27 02/13/19 06:27 Labs: Short CBC 02/13/19 Range/Units 06:27 WBC 5.3 (4.3-11.1) K/mcL Hgb 8.3 L (12.9-16.9) g/dL Hct 23.7 L (37.5-50.1) % Plt Count 127 L (140-400) K/mcL BMP 02/13/19 06:27 Sodium 132 L Potassium 3.2 L Chloride 101 Carbon Dioxide 18 L BUN 74 H Creatinine 4.10 H Glucose 80 Calcium 7.6 L Consult Discharge Plan - Plan Referrals: Deepali Seo MD [Primary Care Provider] - (1) Liver cancer Qualifiers: Liver malignancy type: hepatocellular carcinoma Qualified Code(s): C22.0 - Liver cell carcinoma (3) Acute renal failure (ARF) Qualifiers: Acute renal failure type: unspecified Qualified Code(s): N17.9 - Acute kidney failure, unspecified (4) Hepatitis C Qualifiers: Viral hepatitis chronicity: unspecified (5) Ascites Qualifiers: Ascites type: malignant Qualified Code(s): R18.0 - Malignant ascites (7) Anemia Qualifiers: Anemia type: unspecified type Qualified Code(s): D64.9 - Anemia, unspecified
[2019-02-13] MEDS: *HR* HYDROcodone/Acet 5/325 mg TABLET PO PRN (22:01)
[2019-02-14] MEDS: Sodium Bicarbonate 75 MEQ in 0.45 % Sodium Chloride 1,000 ML IVC SCH (05:05)
[2019-02-14] MEDS: *HR* Heparin 5,000 UNIT/ML VIAL SQ SCH ×3 (05:06→21:38)
[2019-02-14 06:25] LABS: Hematocrit 23.8 % (37.5-50.1); Hemoglobin 8.2 g/dL (12.9-16.9); Mean Corpuscular HGB Conc 34.5 g/dL (31.6-35.5); Mean Corpuscular Hemoglobin 28.1 pg (28.0-33.3); Mean Corpuscular Volume 81.5 fL (83.0-100.0); Mean Platelet Volume 9.9 fL (9.4-12.4); Platelet Count 115 K/mcL (140-400); Red Blood Count 2.92 M/mcL (4.19-5.50); Red Cell Distribution Width 16.4 % (11.5-14.5)
[2019-02-14 06:50] LABS: Calcium 7.4 mg/dL (8.6-10.3); Potassium 3.5 mEq/L (3.5-5.1)
[2019-02-14] MEDS: predniSONE 10 MG TABLET PO SCH (08:55)
[2019-02-14] MEDS: Ammonium Lactate 30 APPL/225 GM BOTTLE TP SCH ×2 (08:55→19:09)
[2019-02-14] MEDS: Triamcinolone Acet 0.1% CRM 15 GM TUBE TP SCH ×2 (08:55→19:09)
--- NOTE | 2019-02-14 09:25 | Nephrology Progress Note ---
Date of Encounter: 02/14/19 Time of Encounter: 07:45 - Assessment and Plan (1) Acute kidney injury superimposed on chronic kidney disease Current Visit: No Status: Acute Rec stopping IVF today (dilutional hypokalemia noted, plus his SCr has trended better). [facility] strategy is to (when safely able from a Nephro perspective) start furosemide and spironolactone. Continue to follow a renal protective/conservative strategy. I expect the pt to continue improving and if so, then it would be okay to discharge tomorrow. Discussed with the hospitalist. Thank you. (2) Hyponatremia Current Visit: No Status: Acute (3) Metabolic acidosis Current Visit: No Status: Acute (4) Liver cancer Current Visit: No Status: Acute Qualifiers: Liver malignancy type: hepatocellular carcinoma Qualified Code(s): C22.0 - Liver cell carcinoma (5) Anemia Current Visit: No Status: Chronic Qualifiers: Anemia type: unspecified type Qualified Code(s): D64.9 - Anemia, unspecified (6) Ascites Current Visit: No Status: Chronic Qualifiers: Ascites type: malignant Qualified Code(s): R18.0 - Malignant ascites (7) Hepatitis C Current Visit: No Status: Acute Qualifiers: Viral hepatitis chronicity: unspecified Hepatic coma status: without hepatic coma Qualified Code(s): B19.20 - Unspecified viral hepatitis C without hepatic coma (8) Hypokalemia Current Visit: No Status: Acute Subjective Principal diagnosis: NAYANA Interval history: The patient was seen and examined. His was present in the room. He did not affirm active N/V/D or abdominal swelling. Objective - Vital Signs Vital signs: Vital Signs Temp Pulse Resp BP Pulse Ox 02/14/19 07:06 98.0 F 94 15 106/66 93 02/14/19 04:14 98.0 F 88 16 102/67 93 02/13/19 23:20 98.1 F 95 16 95/67 96 02/13/19 19:00 97.6 F 102 16 119/80 96 02/13/19 16:34 97.5 F L 95 16 106/67 97 02/13/19 10:54 97.6 F 89 16 104/68 97 Intake and Output 02/13/19 02/14/19 02/14/19 23:59 07:59 15:59 Intake Total 1315 / 1315 1425 / 1425 240 / 240 Output Total 1550 / 1550 200 / 200 Balance -235 / -235 1225 / 1225 240 / 240 Intake: IV Fluids 1075 / 1075 1075 / 1075 Sodium Bicarbonate 75 MEQ In 0. 1075 / 1075 1075 / 1075 45% Sodium Chloride 1000 Ml 1000 Ml 1,000 ML @ 125 mls/hr IVC .[id number] [facility] Rx#:[id number] Oral 240 / 240 350 / 350 240 / 240 Output: Urine 550 / 550 200 / 200 Wound Drainage 1000 / 1000 Right Lower Abdomen 1000 / 1000 Other: Meal Dinner Breakfast Percent of Meal Consumed 20% 50% Weight 77.4 kg Patient Weight 02/14/19 23:59 Weight 77.4 kg - General Appearance General appearance: Present: well-developed, well-nourished, appears started age, cachectic EENT: Present: ATNC, PERRL, mucous membranes moist Neck: Present: supple Respiratory: Present: clear Cardiology: Present: no edema (trace LE edema), regular rate, regular rhythm, normal S1, normal S2 Gastrointestinal: Present: normoactive bowel sounds, no tenderness, no guarding, distended Integumentary: Present: ecchymotic Neurologic: Present: no focal deficit, no asterixis, alert and oriented x3 Musculoskeletal: Present: no erythema, no clubbing Psychiatric: Present: mood/affect appropriate, cooperative - Lab 02/14/19 05:12 02/14/19 05:12 Most recent lab results Calcium 7.4 mg/dL (8.6-10.3) L 02/14/19 05:12 Phosphorus 4.4 mg/dL (2.7-4.5) 02/12/19 05:10 Urine Creatinine 168 mg/dL 02/10/19 18:55 Urine Sodium 12.2 mEq/L 02/11/19 13:05 Urine Total Protein 52 mg/dL (1-14) H 02/10/19 18:55 Consult Discharge Plan - Plan Referrals: Deepali Seo MD [Primary Care Provider] - 02/21/19 2:30 pm (Please follow up as schedule with Griselda Ybarra)
--- NOTE | 2019-02-14 13:12 | Gastroenterology Consult Note ---
Addendum entered and electronically signed by Juan Potts CNP 02/14/19 15:44: Send peritoneal fluid for cell count to rule out SBP. Patient is not eligible for liver transplant due to HCC. Original Note: <Juan Potts - Last Filed: 02/14/19 13:10> Date of Encounter: 02/14/19 Time of Encounter: 10:20 - Assessment and plan (1) Cirrhosis Current Visit: Yes Status: Acute Assessment and plan: Unable to calculate MELD-Na or Child-Jade. Check hepatic panel and PT/INR. AFP 2943 on 02/09/2019. Recommend 2-4 BMs daily, use Lactulose if needed. Bumex on hold due to NAYANA. Start Midodrine 2.5 mg TID, may be able to increase to 5 mg in three days. Consider outpatient referral to [facility] for possible liver transplant. Lifestyle Changes: 1. Total abstinence from alcohol including social drinking. 2. No smoking. 3. Gradual loss of weight. 4. Drink at least 3 cups of coffee due to its antioxidant effects in the liver, it reduces risk of HCC and advance fibrosis. 5. If needed, use less than 2 g/day of Tylenol (in divided doses). 6. Vaccination for Hep A, B, Pneumococcus if not already received and yearly influenza vaccination by PCP. 7. Avoid NSAIDS as can cause kidney damage. 8. Avoid benzodiazepines and other sedatives such as anti-histamines, narcotics etc. as can cause encephalopathy or confusion. 9. Take a late carbohydrate meal supplement as it reduces glucose production from protein breakdown and thus improves nutrition. 10. In cirrhosis, statins are safe to use and also improve portal hypertension. Qualifiers: Hepatic cirrhosis type: unspecified hepatic cirrhosis Ascites presence: with ascites Qualified Code(s): K74.60 - Unspecified cirrhosis of liver; R18.8 - Other ascites (2) Ascites Current Visit: Yes Status: Chronic Assessment and plan: Plan for paracentesis and send cell for cytology to r/o SBP. Start Midodrine 2.5 mg TID. Qualifiers: Ascites type: malignant Qualified Code(s): R18.0 - Malignant ascites (3) HCC (hepatocellular carcinoma) Current Visit: Yes Status: Acute Assessment and plan: Management per Oncology. (4) Hepatitis C Current Visit: Yes Status: Acute Assessment and plan: Hep C viral load 5.96 million with genotype 3A on 06/23/2018. Qualifiers: Viral hepatitis chronicity: unspecified Hepatic coma status: without hepatic coma Qualified Code(s): B19.20 - Unspecified viral hepatitis C without hepatic coma - Time Spent With Patient Total time spent is greater than 50% in coordination of care (as documented) at patient's floor/unit and/or counseling patient: GI History of Present Illness - Data of Consult Patient: known to practice within the last 3 years Consult date: 02/14/19 Requesting Physician: Brooks Howard - Consult Narrative Reason for consult: Hep C, cirrhosis, HCC History of present illness: Mr. 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 Creat has improved with IV fluids. We have been consulted for evaluation of cirrhosis and hepatitis C. Tunneled peritoneal catheter was placed 11/25/2008 and has been drinking approximately 1 L per day per patient report. Procedures: Colonoscopy 08/05/2018 Dr. Olmstead: Internal hemorrhoids. NSAIDs: None Anticoagulation: None Past Med Surg Social Fam HX - Past Medical History Medical history: cancer, liver disease Additional medical history: hep c Psychiatric history: no psych history - Past Surgical History Additional surgical history: right elbow surgery - colonoscopy - Social History Smoking Status: Former smoker Smokeless Tobacco Status: No Alcohol use: none Drug use: none - Gastrointestinal Gastrointestinal: Present: as per HPI - Constitutional Constitutional: as per HPI - EENT Eyes: as per HPI Ears: Present: as per HPI Nose, mouth and throat: Present: as per HPI - Cardiovascular Cardiovascular ROS: Present: as per HPI - Respiratory Respiratory IM: Present: as per HPI - Genitourinary Genitourinary: Absent: change in color, Urinary frequency - Neurological ROS Neurological GI: Present: as per HPI - Hematologic/Lymphatic Hematologic/Lymphatic pediatric: Present: as per HPI - Musculoskeletal Musculoskeletal ROS GI: Present: as per HPI - Integumentary Integumentary GI: Present: as per HPI - Psychiatric ROS Psychiatric GI: Present: as per HPI - Endocrine Endocrine IM: Present: as per HPI - Constitutional Vitals: Temp Pulse Resp BP Pulse Ox 97.6 F 100 16 115/72 94 02/14/19 11:01 02/14/19 11:01 02/14/19 11:01 02/14/19 11:01 02/14/19 11:01 General appearance: Present: cooperative, A&O X 3, no acute distress, answers questions appropriately - Head Head exam: Present: atraumatic, normocephalic - Eye Eye exam: Present: normal appearance, sclera anicteric - ENT ENT exam: Present: mucous membranes moist - Neck Neck exam general surgery: Present: normal inspection, trachea midline - Respiratory Respiratory exam: Present: CTAB. Absent: rales, rhonchi - Cardiovascular Cardiovascular exam: Present: RRR, +S1, +S2 - GI/Abdominal GI/Abdominal exam: Present: distended, firm, soft, no peritoneal signs. Absent: guarding, tenderness - Rectal Rectal exam: Present: deferred - Extremities Exam Extremities exam: Present: warm - Neurological Exam Neurological exam: Present: no focal deficits - Psychiatric Psychiatric exam: Present: normal affect, normal mood - Skin Skin exam: Present: dry, intact, normal color, warm Results - Labs CBC & Chem 7: 02/14/19 05:12 02/14/19 05:12 Labs: Last Result Calcium 7.4 mg/dL (8.6-10.3) L 02/14/19 05:12 Entire Visit Hgb 8.2 g/dL (12.9-16.9) L 02/14/19 05:12 Hct 23.8 % (37.5-50.1) L 02/14/19 05:12 Total Bilirubin 0.6 mg/dL (0.3-1.0) 02/10/19 04:34 AST 39 Units/L (13-39) 02/10/19 04:34 ALT 24 Units/L (7-52) 02/10/19 04:34 Consult Discharge Plan - Plan Referrals: Deepali Seo MD [Primary Care Provider] - 02/21/19 2:30 pm (Please follow up as schedule with Griselda Ybarra) <Kylie Segovia - Last Filed: 02/14/19 19:22> Date of Encounter: 02/14/19 Time of Encounter: 18:00 - Time Spent With Patient Total time spent is greater than 50% in coordination of care (as documented) at patient's floor/unit and/or counseling patient: GI History of Present Illness - Data of Consult Requesting Physician: Brooks Howard - Consult Narrative History of present illness: Mr. Marino is a 68 year old male - Constitutional Vitals: Temp Pulse Resp BP Pulse Ox 98.4 F 91 16 111/70 98 02/14/19 16:58 02/14/19 16:58 02/14/19 16:58 02/14/19 16:58 02/14/19 16:58 Results - Labs CBC & Chem 7: 02/14/19 05:12 02/14/19 05:12 Labs: Last Result Calcium 7.4 mg/dL (8.6-10.3) L 02/14/19 05:12 Entire Visit Hgb 8.2 g/dL (12.9-16.9) L 02/14/19 05:12 Hct 23.8 % (37.5-50.1) L 02/14/19 05:12 PT 12.8 Seconds (9.4-12.1) H 02/14/19 13:59 Total Bilirubin 0.8 mg/dL (0.3-1.0) 02/14/19 13:59 AST 39 Units/L (13-39) 02/14/19 13:59 ALT 26 Units/L (7-52) 02/14/19 13:59 - ABG ABG results: PT/INR, D-dimer PT 12.8 Seconds (9.4-12.1) H 02/14/19 13:59 - Attending Attestation I have personally performed a face to face evaluation on this patient. I have reviewed and agree with the care plan. History and Exam by me shows: Patient seen. Denies any abdominal pain examination alert and awake not in distress. Abdomen is distended due to ascites and does has Pleurx catheter. Assessment: Patient with cirrhosis due to hep C and stage IV hepatocellular carcinoma now with renal failure most probably due to chemotherapy and could also have a hepatorenal component. Renal function are slowly improving. Current patient meld sodium score is 26. Rec: Because of advance hepatocellular cancer patient is not a candidate for liver transplant. We will send ascitic fluid for cell count to make sure he does not have any SBP which can make renal function worse. Low dose midodrine which will help with his renal function also with his ascites. D/W with Ander currently patient is not a candidate for TIPS due to his high meld score but ho pefully in the future once renal function improves and if he still has refractory ascites then TIPS can be reconsidered
[2019-02-14 14:28] LABS: INR 1.1; Prothrombin Time 12.8 Seconds (9.4-12.1)
[2019-02-14 14:32] LABS: Albumin/Globulin Ratio 1.4 (1.1-2.2); Bilirubin,Direct 0.3 mg/dL (0.0-0.2); Bilirubin,Indirect 0.5 mg/dL (0.0-1.2); Bilirubin,Total 0.8 mg/dL (0.3-1.0); Globulin 2.8 g/dL (2.4-3.5); Total Protein 6.8 g/dL (6.4-8.9)
--- NOTE | 2019-02-14 15:50 | Oncology Inp Progress Note ---
<Mina Goodson S - Last Filed: 02/14/19 17:29> Date of Encounter: 02/14/19 Time of Encounter: 17:29 Oncology: Obj Data - Labs CBC & Chem 7: 02/14/19 05:12 02/14/19 05:12 Consult Discharge Plan - Plan Referrals: Deepali Seo MD [Primary Care Provider] - 02/21/19 2:30 pm (Please follow up as schedule with Griselda Ybarra) Inpatient Charges Provider: Dr. Hua oGodson Follow up - Inpatient: [id number] - Attending Attestation I examined this patient and my medical decision-making was reviewed with the Advanced Practice Nurse. I agree with the documented findings, disposition and treatment plan as described except to the extent set forth below. 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 Progressively worsening of creatinine. Currently patient on hemodialysis and creatinine improved from 5 range to 3 range His renal function got worse since November 2018. This could have been immune mediated from Nivolumab. He did not get the last dose of Nivolumab. Reviewed the guidelines. We will treat him with Solu-Medrol 40 mg every 12 hours now on on discharge will keep him on prednisone 60 mg by mouth daily with a slow taper. 2. Metastatic hepatocellular carcinoma. He could not tolerate sorafenib. His alpha-fetoprotein level is increasing currently on immunotherapy. Given the amount of renal dysfunction and he may not be a candidate for further immunotherapy. He may be a candidate for Lenvatinib <Patria Chester - Last Filed: 02/15/19 08:06> Date of Encounter: 02/15/19 (1) HCC (hepatocellular carcinoma) Current Visit: No Status: Acute Assessment and plan: Current Visit: No Status: Acute Assessment and plan: Stage IV hepatocellular carcinoma. Previously could not tolerate sorafenib. Started on Nivolumab 11/09/2018. AFP increasing currently, likely indicating disease progression Pending improvement of renal function, we will discuss next line of treatment as outpatient Will do CT chest/abdomen + pelvis for restaging. Qualifiers: Liver malignancy type: hepatocellular carcinoma Qualified Code(s): C22.0 - Liver cell carcinoma (2) Acute renal failure (ARF) Current Visit: No Status: Acute Assessment and plan: (2) Acute renal failure (ARF) Current Visit: Yes Status: Acute Assessment and plan: 1. Acute renal failure. Creatinine normal prior to October 2018, gradually increasing since 11/09/2018. Nephrology on board 02/14/19: Slight improvement: BUN 68, Creatinine 3.8, eGFR 16 Continue renal protective strategies Although rare, may consider renal toxicity caused by checkpoint inhibitors. Patients can respond to prednisone 1 mg/kg per day with a slow taper. Patient was started on prednisone 10 mg PO daily on 02/11/19 for a rash/pruritus. This will be stopped and patient started on methylprednisone 40 mg IV q 12 hours while inpatient. At discharge, will transition to prednisone PO. He will also need GI prophylaxis due to prevent irritation from high-dose steroids. Qualifiers: Acute renal failure type: unspecified Qualified Code(s): N17.9 - Acute kidney failure, unspecified Qualifiers: Acute renal failure type: unspecified Qualified Code(s): N17.9 - Acute kidney failure, unspecified (3) Ascites Current Visit: No Status: Chronic Assessment and plan: (3) Ascites Current Visit: Yes Status: Chronic Assessment and plan: Hepatitis C with Cirrhosis portal hypertension with large volume ascites, he has abdominal pleurx that drains ~1000 ml/daily Bumex on hold in light of NAYANA Gastroenterology consulted. Recommendations:Plan for paracentesis and send cell for cytology to r/o SBP. Start Midodrine 2.5 mg TID. Qualifiers: Ascites type: malignant Qualified Code(s): R18.0 - Malignant ascites Qualifiers: Ascites type: malignant Qualified Code(s): R18.0 - Malignant ascites Oncology: Subj Interval history: Mr. Marino is awake, sitting in the chair this afternoon, with his at bedside. He notes that he is doing okay. He has continued to drain approximately 1L from Pleurx catheter today. He notes shortness of breath due to distended abdomen. He has been up walking the hallway as tolerated. He and his voice concern about the dietary recommendations from Dr. Veronica, the dietary staff, and the mail technician, as they are receiving mixed information about what he should be eating or avoiding. Discussed that he would follow up with Dr. Rob after discharge to discuss treatment options. Noted rise in AFP and may need to consider another treatment option. Patient and verbalize acceptance, but patient notes that he does not want to go back on sorafenib. His notes that he was also supposed to have CT scans with contrast this week for restaging, but he is admitted and unable to receive contrast due to kidney function. Will discuss with primary oncologist and reschedule, if needed. - Constitutional General appearance: cooperative - Neck Neck exam: Present: normal inspection - Respiratory Respiratory exam: Present: decreased breath sounds, CTAB - Cardiovascular Cardiovascular exam: Present: RRR - GI/Abdominal GI/Abdominal exam: Present: distended, firm, normal bowel sounds - Extremities Exam Extremities exam: Present: normal inspection - Neurological Exam Neurological exam: Present: alert, oriented X3, strengths equal and symetr thr oughout. Absent: facial droop, speech deficit - Psychiatric Psychiatric exam: Present: normal affect, normal mood - Skin Skin exam: Present: dry, pallor Oncology: Obj Data - Labs CBC & Chem 7: 02/15/19 04:31 02/15/19 04:31 Inpatient Charges Provider: Dr. Hua Goodson
[2019-02-14] MEDS ORDERED: MethylPREDNISolone 40 MG/ML VIAL ONE (20:13)
[2019-02-14] MEDS: MethylPREDNISolone 40 MG/ML VIAL IVP SCH (20:46)
--- NOTE | 2019-02-14 22:22 | Internal Med Progress Note ---
Hospitalist Progress Note - Encounter Date of Encounter: 02/14/19 Time of Encounter: 19:00 - Subjective Interval History: The patient feels pretty good. He walks around. No abdominal pain, nausea and vomiting. He makes good amounts of urine. OBJECTIVE: Skin: Free of rash and discoloration. ENMT: Oral/pharyngeal mucosa is normal in appearance. Eyes: Sclera is white. There is no discharge from eyes. Respiratory: Normal breath sounds; no crackles or wheezes. CV: Heart is regular; no gallop or murmur. GI: His abdomen is rounded. It seems to contain a mild/moderate amount of ascites. Neuro: There is no focal deficits. ADDITIONAL DATA: Hemoglobin is 8.2; 8.3 yesterday. WBCs 5.6 thousand. Platelet count is 115,000; 127,000 yesterday. Sodium is 129; 132 yesterday. Potassium 3.5; 3.2 yesterday. Bicarb is 20; 12 at admission. Creatinine is 3.80; 4.10 yesterday. ASSESSMENT AND PLAN: Liver cancer. Bone metastases. The patient was getting palliative treatment with immunotherapy before this hospitalization - put on hold due to developing renal insufficiency. See notes from oncology. Acute renal failure. Likely multifactorial. Dehydration, third spacing and NSAIDs use. Possible, other factors. We will stop his IV fluids. His BMP will be checked tomorrow morning. If creatinine is stable or improving, the patient will be discharged home. See notes from nephrology. The patient is draining fluid from peritoneal cavity every day at 1000 mL per day. Albumin level is satisfactory. Hepatitis C, NOS. developed liver cirrhosis. Ascites. The patient has a special catheter in intraperitoneal cavity for drainage of excessive amounts of fluid. Hypokalemia. Decreased bicarb level. On supplemental potassium chloride by mouth. Was getting bicarbonate and IV fluids. Chronic anemia. Seems to be stable. It is basically asymptomatic. Severe protein calorie malnutrition. Secondary to advanced cancer. To continue supportive treatments. - Exam Vitals: Temp Pulse Resp BP Pulse Ox 98 F 102 18 122/77 97 02/14/19 19:29 02/14/19 19:29 02/14/19 19:29 02/14/19 19:29 02/14/19 19:29 Exam: xx - Assessment and Plan (1) Liver cancer Current Visit: No Status: Acute (2) Bone metastases Current Visit: No Status: Acute (3) Acute renal failure (ARF) Current Visit: No Status: Acute (4) Hepatitis C Current Visit: No Status: Acute (5) Ascites Current Visit: No Status: Chronic (6) Hypokalemia Current Visit: No Status: Acute (7) Anemia Current Visit: No Status: Chronic (8) Severe protein-calorie malnutrition Current Visit: No Status: Chronic - Time Spent with Patient Total time spent is greater than 50% in coordination of care (as documented) at patient's floor/unit and/or counseling patient: 25 - 35 minutes Plan of Care Discussed with: patient (and family...) Internal Medicine: Result - Labs CBC & Chem 7: 02/14/19 05:12 02/14/19 05:12 Labs: Short CBC 02/14/19 Range/Units 05:12 WBC 5.6 (4.3-11.1) K/mcL Hgb 8.2 L (12.9-16.9) g/dL Hct 23.8 L (37.5-50.1) % Plt Count 115 L (140-400) K/mcL BMP 02/14/19 05:12 Sodium 129 L Potassium 3.5 Chloride 99 Carbon Dioxide 20 L BUN 68 H Creatinine 3.80 H Glucose 81 Calcium 7.4 L Liver Function 02/14/19 Range/Units 13:59 Total Bilirubin 0.8 (0.3-1.0) mg/dL Direct Bilirubin 0.3 H (0.0-0.2) mg/dL AST 39 (13-39) Units/L ALT 26 (7-52) Units/L Alkaline Phosphatase 91 (34-104) Units/L Albumin 4.0 (3.5-5.7) g/dL - ABG Interpretation ABG results: PT/INR, D-dimer PT 12.8 Seconds (9.4-12.1) H 02/14/19 13:59 Consult Discharge Plan - Plan Referrals: Deepali Seo MD [Primary Care Provider] - 02/21/19 2:30 pm (Please follow up as schedule with Griselda Ybarra) (1) Liver cancer Qualifiers: Liver malignancy type: hepatocellular carcinoma Qualified Code(s): C22.0 - Liver cell carcinoma (3) Acute renal failure (ARF) Qualifiers: Acute renal failure type: unspecified Qualified Code(s): N17.9 - Acute kidney failure, unspecified (4) Hepatitis C Qualifiers: Viral hepatitis chronicity: unspecified Hepatic coma status: without hepatic coma Qualified Code(s): B19.20 - Unspecified viral hepatitis C without hepatic coma (5) Ascites Qualifiers: Ascites type: malignant Qualified Code(s): R18.0 - Malignant ascites (7) Anemia Qualifiers: Anemia type: unspecified type Qualified Code(s): D64.9 - Anemia, unspecified
[2019-02-15 05:31] LABS: Hematocrit 24.4 % (37.5-50.1); Hemoglobin 8.5 g/dL (12.9-16.9); Mean Corpuscular HGB Conc 34.8 g/dL (31.6-35.5); Mean Corpuscular Hemoglobin 28.7 pg (28.0-33.3); Mean Corpuscular Volume 82.4 fL (83.0-100.0); Mean Platelet Volume 9.5 fL (9.4-12.4); Platelet Count 108 K/mcL (140-400); Red Blood Count 2.96 M/mcL (4.19-5.50); Red Cell Distribution Width 16.3 % (11.5-14.5)
[2019-02-15 05:48] LABS: Calcium 7.4 mg/dL (8.6-10.3); Potassium 4.2 mEq/L (3.5-5.1)
[2019-02-15] MEDS: MethylPREDNISolone 40 MG/ML VIAL IVP SCH ×2 (05:56→15:34)
[2019-02-15] MEDS: Triamcinolone Acet 0.1% CRM 15 GM TUBE TP SCH (07:29)
[2019-02-15] MEDS: Ammonium Lactate 30 APPL/225 GM BOTTLE TP SCH (07:29)
--- NOTE | 2019-02-15 09:16 | Nephrology Progress Note ---
Date of Encounter: 02/15/19 Time of Encounter: 07:45 - Assessment and Plan (1) Acute kidney injury superimposed on chronic kidney disease Current Visit: No Status: Acute Renal function has responded well enough such that now is the time to start the senior care strategy of furosemide and spironolactone; which would help with his recurrent ascites and the hypervolemic hyponatremia. I described the SE profile and caution with monitoring his BPs. He already has midodrine to help maintain his BPs. Hypervolemic hyponatremia: worsened today. Time for diuretics. This is most likely Not a salt deficiency but rather too much volume; also to start a <48oz per day fluid restriction. Likely related to his cirrhosis. This will need monitoring after this hospitalization with a BMP in about 1 week. He should not be given Metolazone or HCTZ or other Thiazide type diuretics in the setting of Hyponatremia. Continue to follow a renal protective/conservative strategy. Okay to discharge today with Nephrology follow up in <4 weeks. I counseled the pt for >50% of the encounter on renal protective strategy. He is to avoid NSAIDs, Bactrim, IV contrast. He should continue draining his ascites daily and though I've recommended limiting the draining to about 1000mL/day, this volume likely could be increased if needed over time when his renal function trends even better. Thank you. (2) Hyponatremia Current Visit: No Status: Acute Worsened. See above (3) Metabolic acidosis Current Visit: No Status: Acute Improved (4) Liver cancer Current Visit: No Status: Acute Qualifiers: Liver malignancy type: hepatocellular carcinoma Qualified Code(s): C22.0 - Liver cell carcinoma (5) Anemia Current Visit: No Status: Chronic Qualifiers: Anemia type: unspecified type Qualified Code(s): D64.9 - Anemia, unspecified (6) Ascites Current Visit: No Status: Chronic See above Qualifiers: Ascites type: malignant Qualified Code(s): R18.0 - Malignant ascites (7) Hepatitis C Current Visit: No Status: Acute Qualifiers: Viral hepatitis chronicity: unspecified Hepatic coma status: without hepatic coma Qualified Code(s): B19.20 - Unspecified viral hepatitis C without hepatic coma (8) Hypokalemia Current Visit: No Status: Acute Improved Subjective Principal diagnosis: NAYANA Interval history: The patient was seen and examined. His was present in the room, as well as his floor RN. He did not affirm active N/V/D or abdominal swelling, and he reported having a good appetite, as he was eating breakfast during my interview/exam. Objective - Vital Signs Vital signs: Vital Signs Temp Pulse Resp BP Pulse Ox 02/15/19 07:01 98.0 F 100 16 125/71 93 02/15/19 04:22 98.0 F 90 18 117/69 95 02/14/19 23:26 98.2 F 88 18 116/68 95 02/14/19 19:29 98 F 102 18 122/77 97 02/14/19 16:58 98.4 F 91 16 111/70 98 02/14/19 11:01 97.6 F 100 16 115/72 94 Intake and Output 02/14/19 02/15/19 02/15/19 23:59 07:59 15:59 Intake Total 890 / 890 Output Total 725 / 725 550 / 550 1000 / 1000 Balance 165 / 165 -550 / -550 -1000 / -1000 Intake: Oral 890 / 890 Output: Urine 725 / 725 550 / 550 Wound Drainage 1000 / 1000 Right Lower Abdomen 1000 / 1000 Other: Meal Dinner Percent of Meal Consumed 60% Weight 78.2 kg - General Appearance Exam: General appearance: Present: well-developed, well-nourished, appears started age, cachectic EENT: Present: ATNC, PERRL, mucous membranes moist Neck: Present: supple Respiratory: Present: clear Cardiology: Present: no edema (trace LE edema), regular rate, regular rhythm, normal S1, normal S2 Gastrointestinal: Present: normoactive bowel sounds, no tenderness, no guarding, distended Integumentary: Present: ecchymotic Neurologic: Present: no focal deficit, no asterixis, alert and oriented x3 Musculoskeletal: Present: no erythema, no clubbing Psychiatric: Present: mood/affect appropriate, cooperative - Lab 02/15/19 04:31 02/15/19 04:31 Most recent lab results Calcium 7.4 mg/dL (8.6-10.3) L 02/15/19 04:31 Phosphorus 4.4 mg/dL (2.7-4.5) 02/12/19 05:10 Urine Creatinine 168 mg/dL 02/10/19 18:55 Urine Sodium 12.2 mEq/L 02/11/19 13:05 Urine Total Protein 52 mg/dL (1-14) H 02/10/19 18:55 Consult Discharge Plan - Plan Referrals: Deepali Seo MD [Primary Care Provider] - 02/21/19 2:30 pm (Please follow up as schedule with Griselda Ybarra)
[2019-02-15 11:07] VITALS: BP 105/73
--- NOTE | 2019-02-15 14:46 | Discharge Summary ---
Orders not resulted at time of discharge: Pending orders 02/12/19 05:10 Immunoelectrophoresis AM 040 [place] Lambda [place] [address]/16/19 04:00 BMP [Basic Metabolic Panel] AM 040 Complete Blood Count w/o Diff [HEME] AM 040 Date of Encounter: 02/15/19 Time of Encounter: 14:44 - Discharge Diagnosis (1) Liver cancer Priority: Primary Status: Acute Qualifiers: Liver malignancy type: hepatocellular carcinoma Qualified Code(s): C22.0 - Liver cell carcinoma (2) Bone metastases Priority: Primary Status: Acute (3) Acute renal failure (ARF) Priority: Primary Status: Acute Qualifiers: Acute renal failure type: unspecified Qualified Code(s): N17.9 - Acute kidney failure, unspecified (4) Hepatitis C Priority: Secondary Status: Chronic Qualifiers: Viral hepatitis chronicity: unspecified Hepatic coma status: without hepatic coma Qualified Code(s): B19.20 - Unspecified viral hepatitis C without hepatic coma (5) Ascites Priority: Secondary Status: Chronic Qualifiers: Ascites type: malignant Qualified Code(s): R18.0 - Malignant ascites (6) Hypokalemia Priority: Secondary Status: Acute (7) Anemia Priority: Secondary Status: Chronic Qualifiers: Anemia type: unspecified type Qualified Code(s): D64.9 - Anemia, unspecified (8) Severe protein-calorie malnutrition Priority: Secondary Status: Chronic Hospital course: HOSPITAL COURSE: The patient is a 68-year-old male with past medical history significant for 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 Additionally, he has had hepatitis C/liver cirrhosis. He was treated with palliative immunotherapy by his oncologist before this admission; developed acute kidney injury (creatinine of 6.3). Nephrology and hematology were consulted. Sometime later GI service was consulted. The patient got IV fluids. His creatinine started decreasing a couple days after the admission. He does have special drain for evacuation of fluid from peritoneal cavity. We told him not to drain more than 1000 mL per day. The patient was started on IV Solu-Medrol by oncology service. He was discharged home with prednisone at 60 mg by mouth every morning. It will be tapered by oncology in outpatient settings. He felt pretty good on the day of discharge. His blood work from that the day showed hemoglobin of 8.5 (chronic anemia) with WBC of 4.7 thousand and platelet count of 108,000 (chronic thrombocytopenia). Associated with sodium of 127 and potassium of 4.2. With creatinine of 3.66 (6.3 at admission). With bicarb of 17 (12 at admission). CONDITION AT DISCHARGE: He feels pretty good. Denies chest pain and difficulty breathing. He is on room air oxygen. His abdomen is rounded. It contains mild/moderate amount of ascites. He ambulates on his own without difficulties. Skin: Free of rash and discoloration. Respiratory: Normal breath sounds with no crackles and wheezes bilaterally. CV: Heart is regular with no gallop or murmur. GI: Abdomen is rounded. It is soft and not tender. Neuro exam: There is no focal deficits. Normal speech, swallowing and gait. SEE DISCHARGE ORDERS/MEDICATIONS Discharge discussed with: patient, family - Time Spent with Patient Total time spent providing and/or coordinating discharge services: Time spent: Greater than 30 minutes (45 minutes...) - Discharge Medications Prescriptions: New Midodrine [ProAmatine] 2.5 mg PO 0800,1200,1700 #45 tablet Potassium Chloride 20 meq PO BIDWM #60 tab.er.prt predniSONE [PredniSONE] 60 mg PO QAM 5 Days #15 tablet Continue hydrOXYzine HCl [Hydroxyzine HCl] 25 mg PO Q6H PRN #30 tab PRN Reason: Itching Triamcinolone Acet 0.1% CRM [Kenalog] 453.6 gm TP BID #1 tub Doxepin HCl 50 mg PO HS #30 capsule Ciprofloxacin HCl [Cipro] 500 mg PO DAILY Oxycodone HCl 5 mg PO Q4H PRN PRN Reason: Pain Ammonium Lactate [Lac-Hydrin Five] 1 appl TP BID Discontinued predniSONE [PredniSONE] 10 mg PO DAILY Home Medications: hydrOXYzine HCl [Hydroxyzine HCl] 25 mg PO Q6H PRN #30 tab 01/24/19 [Rx] Doxepin HCl 50 mg PO HS #30 capsule 02/09/19 [Rx] Triamcinolone Acet 0.1% CRM [Kenalog] 453.6 gm TP BID #1 tub 02/09/19 [Rx] Ammonium Lactate [Lac-Hydrin Five] 1 appl TP BID 02/10/19 [History] Ciprofloxacin HCl [Cipro] 500 mg PO DAILY 02/10/19 [History] Oxycodone HCl 5 mg PO Q4H PRN 02/10/19 [History] Midodrine [ProAmatine] 2.5 mg PO 0800,1200,1700 #45 tablet 02/15/19 [Rx] Potassium Chloride 20 meq PO BIDWM #60 tab.er.prt 02/15/19 [Rx] predniSONE [PredniSONE] 60 mg PO QAM 5 Days #15 tablet 02/15/19 [Rx] Allergies/Adverse Reactions: Allergy/AdvReac Type Severity Reaction Status Date / Time Penicillins [PCN] AdvReac See Verified 02/09/19 13:48 Comments Date of admission: 02/09/19 16:44 Primary care physician: Deepali Seo MD Consults: 02/09/19 19:20 Consult to Nephrology [CONS] Routine Consulting Provider: [facility]/TONIE/RODDY/KEYANNA Reason for Consult: Acute renal failure Call Completed: Yes 02/10/19 16:25 Consult to Oncology [CONS] Routine Consulting Provider: [facility] Reason for Consult: Metastatic liver cancer. Comes with NAYANA; losing weight faster... Time Notified: 16:20 Call Completed: Yes 02/11/19 19:20 Consult to Gastroenterology [CONS] Routine Consulting Provider: Gastroenterology [place] Reason for Consult: Hep C, Cirrhosis, HCC, large volume ascites with ~1000 ml drainage daily from abdominal pleurx, admitted with NAYANA Call Completed: No Discharging clinician: Brooks Howard Anticipated date of discharge: 02/15/19 - Constitutional Vitals: Temp Pulse Resp BP Pulse Ox 97.6 F 88 16 105/73 94 02/15/19 11:06 02/15/19 11:06 02/15/19 11:06 02/15/19 11:06 02/15/19 11:06 General appearance: Present: A&O X 3, pleasant, answers questions appropriately Exam: xx - Patient Status Disposition: Home, Self-Care Condition: Fair Functional capacity at discharge: independent ambulation Overall status at discharge: patient is progressing back to baseline - Discharge Instructions Instructions: Acute Kidney Injury (DC) Follow Up With: Deepali Seo MD [Primary Care Provider] - 02/21/19 2:30 pm (Please follow up as schedule with Griselda Ybarra) Max Rob MD [Partnered Physician] - 02/17/19 11:00 am Scar Veronica DO [Partnered Physician] - 04/04/19 8:30 am Additional Instructions: DRAINING OF PERITONEAL FLUID -- 1000 ML (OR LESS), DAILY FOLLOW-UP WITH ONCOLOGY -- INABOUT 1 WEEK... FOLLOW-UP WITH NEPHROLOGY -- IN 2-3 WEEKS... FLUID RESTRICTION OF 0640-0611 ML PER DAY... PREDNISONE 60 MG PO QAM STARTED ON 02/16 -- TO BE TAPERED BY ONCOLOGY... - Diet and Activity Activity: increase activity as tolerated Diet: advance to your usual diet
--- NOTE | 2019-02-15 16:21 | Oncology Inp Progress Note ---
<Mina Goodson S - Last Filed: 02/15/19 16:38> Date of Encounter: 02/15/19 Time of Encounter: 16:38 Oncology: Obj Data - Labs CBC & Chem 7: 02/15/19 04:31 02/15/19 04:31 Consult Discharge Plan - Plan Instructions: Acute Kidney Injury (DC) Additional Instructions: DRAINING OF PERITONEAL FLUID -- 1000 ML (OR LESS), DAILY FOLLOW-UP WITH ONCOLOGY -- INABOUT 1 WEEK... FOLLOW-UP WITH NEPHROLOGY -- IN 2-3 WEEKS... FLUID RESTRICTION OF 3414-2555 ML PER DAY... PREDNISONE 60 MG PO QAM STARTED ON 02/16 -- TO BE TAPERED BY ONCOLOGY... Referrals: Deepali Seo MD [Primary Care Provider] - 02/21/19 2:30 pm (Please follow up as schedule with Griselda Ybarra) Max Rob MD [Partnered Physician] - 02/17/19 11:00 am Scar Veronica DO [Partnered Physician] - 04/04/19 8:30 am Prescriptions: Midodrine [ProAmatine] 2.5 mg PO 0800,1200,1700 #45 tablet Potassium Chloride 20 meq PO BIDWM #60 tab.er.prt predniSONE [PredniSONE] 60 mg PO QAM 5 Days #15 tablet Inpatient Charges Provider: Dr. Hua Goodson Follow up - Inpatient: [id number] - Attending Attestation I examined this patient and my medical decision-making was reviewed with the Advanced Practice Nurse. I agree with the documented findings, disposition and treatment plan as described except to the extent set forth below. 1. Metastatic hepatocellular carcinoma. CAT scan chest abdomen and pelvis without contrast 02/15/2019 showed progression of liver lesion. Also progressive elevation of alpha-fetoprotein. Current value 3000 I discussed this to Dr. Rob. We will make outpatient follow-up with Dr. Rob to discuss further treatment options 2. Acute renal failure. 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 He will be discharged home on prednisone 60 mg by mouth daily with a slow taper 2. Large volume ascites. He has Pleurx type catheter in the abdomen with about 1 L fluid drainage every day or so.. He may be a candidate for TIPS once creatinine improves. Discussed with Dr. Segovia 3. He has metastasis around T2 destructive lesion left pedicle with paraspinal mass By CAT scan on 02/15/2019 Also some lesions T3-T4 and T8. He received thoracic radiation and completed August [address] Kennedy. This area was previously treated. We will also make a follow-up appointment Dr. Kennedy as an outpatient <Kateryna Soto - Last Filed: 02/17/19 10:48> Date of Encounter: 02/15/19 (1) Liver cancer Status: Acute Assessment and plan: Stage IV hepatocellular carcinoma. Previously could not tolerate sorafenib. Started on Nivolumab 11/09/2018. AFP increasing currently, likely indicating disease progression Pending improvement of renal function, we will discuss next line of treatment as outpatient, likely be another TKI Restaging scans with CT chest/abdomen/pelvis are still pending Qualifiers: Liver malignancy type: hepatocellular carcinoma Qualified Code(s): C22.0 - Liver cell carcinoma (2) Acute renal failure (ARF) Status: Acute Assessment and plan: Acute renal failure. Creatinine normal prior to October 2018, gradually increasing since 11/09/2018. Nephrology on board Improving with IVF and renal protective strategies He is awaiting clearance from nephrology on potential discharge today Hyponatremia noted today-nephrology instructed to start <48 oz fluid restriction and restart diuretics as this is likely related to hypervolemia-recommended lasiz or spironolactone Qualifiers: Acute renal failure type: unspecified Qualified Code(s): N17.9 - Acute kidney failure, unspecified (3) Ascites Status: Chronic Assessment and plan: Hepatitis C with Cirrhosis portal hypertension with large volume ascites, he has abdominal pleurx that drains ~1000 ml/daily Bumex on hold in light of NAYANA GI consulted over weekend Continue Midodrine Qualifiers: Ascites type: malignant Qualified Code(s): R18.0 - Malignant ascites Oncology: Subj Interval history: Tyler is sitting up in a chair, his is at bedside. No acute events noted overnight. He states he is feeling well. Continues to deny pain. Denies headache, dizziness, nausea, vomiting, bowel habit changes, chest pain, SOB. Ascites noted which is baseline for patient. Mild BLE pitting edema at baseline. He is hopeful for discharge today after clearance from nephrology. - Constitutional General appearance: cooperative, no acute distress, no febrile Exam: chronically ill appearing - Head Head exam: Present: atraumatic - ENT ENT exam: Present: mucous membranes moist, normal oropharynx - Respiratory Respiratory exam: Present: decreased breath sounds, CTAB. Absent: respiratory distress - Cardiovascular Cardiovascular exam: Present: RRR, +S1, +S2 - GI/Abdominal GI/Abdominal exam: Present: distended, firm, normal bowel sounds. Absent: tenderness - Extremities Exam Extremities exam: Absent: calf tenderness Additional comments: 1+ BLE edema - Neurological Exam Neurological exam: Present: alert, oriented X3, no focal deficits, strengths equal and symetr throughout - Psychiatric Psychiatric exam: Present: normal affect, normal mood - Skin Skin exam: Present: dry, intact, normal color, warm Oncology: Obj Data - Labs CBC & Chem 7: 02/15/19 04:31 02/15/19 04:31 Inpatient Charges Provider: Dr. Hua Goodson
[2019-02-15] MEDS: *HR* Heparin 5,000 UNIT/ML VIAL SQ SCH (16:27)
[2019-02-15 16:54] LABS: Kappa Qnt Free Light Chains 19.6 mg/dL (0.33-1.94); Lambda Qnt Free Light Chains 11.1 mg/dL (0.57-2.63)
[2019-02-15 18:36] LABS: Alpha 2 Globulin (PEP) 0.68 g/dL (0.48-1.05); Beta Globulin (PEP) 0.77 g/dL (0.48-1.10)
[2019-02-16 13:26] LABS: IFE Reflexed NOT DONE
== END 2019-02-15 16:33 | disposition home or self-care (01) | DRG 682 ==
LOC: 2ANU → SUATTDRO 16:44 → OBSVTOIN 16:44
PROVIDERS: ADMIT Hospitalist; ATTEND Internal Medicine